=== PATIENT | female | born 1995 | race Caucasian/White ===

== ENCOUNTER 2021-08-30 11:35 | Emergency (ER) | payer SELFPAY ==
[2021-08-30 11:56] VITALS: BP 131/79; PULSE 70
[2021-08-30] MEDS: LORazepam 2 MG/ML SDV IVPUSH ONE ×3 (12:01→15:42)
[2021-08-30] MEDS: Ondansetron 4 MG/2 ML SDV IVPUSH ONE ×2 (12:02→13:09)
[2021-08-30] MEDS: Sodium Chloride 0.9% 1,000 ML IV SCH ×3 (12:02→15:05)
[2021-08-30] MEDS: hydrOXYzine HCL 100 MG/2 ML SDV IM ONE (15:05)
== END 2021-08-30 17:52 | disposition home or self-care (01) ==
LOC: JP.ED 11:35
DX: K62.9 Disease of anus and rectum, unspecified (principal); F41.9 Anxiety disorder, unspecified; E86.0 Dehydration; F17.210 Nicotine dependence, cigarettes, uncomplicated
CPT/HCPCS: 36415; 80053; 81001; 81025; 85025; 87086; 96361; 96372; 96374; 96375; 96376; 99283; 99284; J2060; J2405; J3410; J7030